=== PATIENT | male | born 1955 | race Caucasian/White ===

== ENCOUNTER → 2019-10-19 | Outpatient (CLI) | payer MEDICARE ==
--- NOTE | 2019-10-19 14:08 | XR ---
EXAMINATION TYPE: XR cervical spine comp DATE OF EXAM: 10/19/2019 COMPARISON: NONE HISTORY: Pain TECHNIQUE: Four views are submitted. FINDINGS: The odontoid is intact. There are no compression deformities. The prevertebral soft tissue structur es are within normal limits. Lateral view is limited due to soft tissue overlap. There suggestion of bilateral foraminal encroachment at C4-5, C5-6 and C6-C7. Diffuse osteopenia noted. Alignment is dem onstrated to be anatomic. Suspect degenerative disc disease at level C5-6 and C6-C7. IMPRESSION: 1. Limited exam demonstrates multilevel degenerative disc disease and suspected foraminal encroachmen t. Recommend MRI follow-up..
== END | disposition home or self-care (01) ==
LOC: RADXRYALE 13:52
PROVIDERS: ATTEND Physician Assistant Medical
DX: M50.30 Other cervical disc degeneration, unspecified cervical region (principal)
CPT/HCPCS: 72050

== ENCOUNTER → 2022-04-09 | Outpatient (CLI) | payer MEDICARE ==
--- NOTE | 2022-04-10 10:22 | CA ---
Transthoracic Echo Report Name: Paul Gibson Age: 67 Gender: M : 1955 Exam Date: 04/09/2022 14:44 Exam Location: [place] [facility] Ht (in): 69 Wt (lb): 310 Ordering Physician: Jose Alfredo Robert DO Attending/Referring Phys: Parul Wilhelm PAC Manager [employer] Zoila Hernandez RDCS Procedure CPT: Indications: R01.1 Murmur Cardiac Hx: Technical Quality: Fair Contrast 1: Total Dose (mL): Contrast 2: Total Dose (mL): MEASUREMENTS (Male / Female) Normal Values 2D ECHO LV Diastolic Diameter PLAX 4.4 cm 4.2 - 5.9 / 3.9 - 5.3 cm LV Systolic Diameter PLAX 3.2 cm IVS Diastolic Thickness 1.2 cm 0.6 - 1.0 / 0.6 - 0.9 cm LVPW Diastolic Thickness 1.4 cm 0.6 - 1.0 / 0.6 - 0.9 cm LV Relative Wall Thickness 0.6 RV Internal Dim ED PLAX 3.5 cm LA Systolic Diameter LX 4.5 cm 3.0 - 4.0 / 2.7 - 3.8 cm M-MODE Aortic Root Diameter MM 2.8 cm LA Systolic Diameter MM 4.3 cm LA Ao Ratio MM 1.5 MV E Point Septal Separation 0.4 cm AV Cusp Separation MM 1.5 cm DOPPLER AV Peak Velocity 281.8 cm/s AV Peak Gradient 31.8 mmHg AV Mean Velocity 202.2 cm/s AV Mean Gradient 18.5 mmHg AV Velocity Time Integral 59.9 cm LVOT Peak Velocity 155.1 cm/s LVOT Peak Gradient 9.6 mmHg MV Area PHT 3.1 cm??? Mitral E Point Velocity 83.3 cm/s Mitral A Point Velocity 99.8 cm/s Mitral E to A Ratio 0.8 MV Deceleration Time 244.1 ms FINDINGS Left Ventricle Left ventricular ejection fraction is estimated at 55%. Mildly increased left ventricular wall thickness. Right Ventricle Normal right ventricular size and function. Right Atrium Normal right atrial size. Left Atrium Mildly increased left atrial diameter. Mitral Valve Mitral annular calcification. Trace mitral regurgitation Aortic Valve Moderate aortic stenosis with a peak gradient of 36.78mmHg and a mean gradient of 18.48mmHg. Tricuspid Valve Tricuspid valve not well visualized. Pulmonic Valve Pulmonic valve not well visualized. Pericardium Echo free space anterior to the right ventricle likely represents a fat pad. Aorta Aortic root and proximal ascending aorta not well visualized. CONCLUSIONS Normal left ventricular ejection fraction 55% Moderate aortic stenosis with a mean gradient of 18 Mild mitral annular calcification Trace mitral regurgitation Previewed by: Dr. Thierno Florentino DO (Electronically Signed) Final Date: 10 April 2022 10:21
== END | disposition home or self-care (01) ==
LOC: RADECHMAIN 14:30
PROVIDERS: ATTEND Family Medicine
DX: I34.0 Nonrheumatic mitral (valve) insufficiency (principal); I35.0 Nonrheumatic aortic (valve) stenosis; I34.8 Other nonrheumatic mitral valve disorders
CPT/HCPCS: 93306

== ENCOUNTER → 2022-09-01 | Outpatient (CLI) | payer MEDICARE, OTHER ==
[2022-09-01 18:37] LABS: HCT 40.1 % (39.6-50.0); HGB 12.7 g/dL (13.0-17.0); MCH 29.5 pg (27.0-32.0); MCHC 31.7 g/dL (32.0-37.0); MCV 93.3 fL (80.0-97.0); Mean Platelet Volume 10.2 fL (9.5-12.2); NRBC Per 100 WBC 0 /100 WBCS (0.0-0.0); Platelet Count 237 X 10*3/uL (140-440); RDW 14.2 % (11.5-14.5); WBC 9.11 X 10*3/uL (4.50-10.00)
[2022-09-02 10:20] LABS: African American GFR (CKD) 89.2 (60.0-200.0); Anion Gap 11.3 mmol/L (10.00-18.00); Blood Urea Nitrogen 20.5 mg/dL (9.0-27.0); Carbon Dioxide 26.7 mmol/L (20.0-27.5); Potassium 4.9 mmol/L (3.5-5.5)
== END | disposition home or self-care (01) ==
LOC: LABPAT 13:38
PROVIDERS: ATTEND Internal Medicine
DX: Z01.812 Encounter for preprocedural laboratory examination (principal); I35.0 Nonrheumatic aortic (valve) stenosis
CPT/HCPCS: 36415; 80051; 82565; 84520; 85027